=== PATIENT | female | born 1990 | race Caucasian/White ===

== ENCOUNTER 2018-10-18 11:46 | Emergency (ER) | payer OTHER ==
[2018-10-18 12:00] VITALS: BP 108/65
[2018-10-18] MEDS ORDERED: Sodium Chloride 0.9% 1,000 ML IV STA (12:32)
[2018-10-18] MEDS ORDERED: Sodium Chloride 0.9% 10 ML Syringe FLUSH PRN (12:32)
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
[2018-10-18] MEDS ORDERED: HYDROmorphone 1 MG/ML Syringe IVPUSH ONE (13:36)
[2018-10-18] MEDS ORDERED: HYDROmorphone 1 MG/ML Syringe ONE (13:38)
--- NOTE | 2018-10-18 14:38 | CR ---
Abdominal series: Supine and upright views of the abdomen were obtained as well as frontal view of the chest. Waggoner nodular density is noted within the right upper chest. Uncertain as to etiology. Lungs otherwise are clear. Surgical clips are seen from prior cholecystectomy. Bony deformity is seen around the pubic symphysis compatible with old healed fractures. Bowel gas pattern appears normal. No free air is seen. Impression: 1. Waggoner nodular density within the right upper chest. Etiology not certain. Noncontrast chest CT could be considered to further evaluate. 2. Other incidental findings. Nothing acute is otherwise seen. Diagnostic code #9
[2018-10-18] MEDS ORDERED: Sodium Chloride 0.9% 10 ML Syringe FLUSH ONE (15:38)
[2018-10-18] MEDS ORDERED: Diatrizoate Meglumine/Diatrizoate Sodium 37% 120 ML Bottle PO ONE (15:38)
[2018-10-18] MEDS ORDERED: Iopamidol 755 Mg/ML 200 ML Bottle IV ONE (15:38)
--- NOTE | 2018-10-18 16:17 | CT ---
CT chest Technique: Multiple axial sections through the chest were obtained. Intravenous contrast was utilized. Instructed coronal and sagittal images were reviewed. Comparison: Prior chest x-ray performed earlier on the same day (1:51 PM). Findings: Partial fusion in 2 locations is seen between the fourth and fifth ribs possibly due to previous trauma and healed rib fractures or is a congenital anomaly. This is to be the etiology for the patient's nodule seen on plain film study. No acute rib fracture is appreciated. Lungs are clear with no acute parenchymal change. No pleural effusions or pneumothorax is seen. Incidental bilateral breast prosthesis are noted. Mediastinum and hilar region show no adenopathy or mass. Aorta shows no aneurysm. No pericardial thickening is seen. Impression: 1. Deformity between the fourth and fifth right ribs either due to old healed rib fractures or congenital anomaly. As mentioned above, this is felt to be the etiology for the patient's nodule seen on recent chest x-ray. 2. Nothing acute is appreciated on CT study of the chest. Diagnostic code #2 CT abdomen and pelvis Technique: Multiple axial sections were obtained from above the dome of the diaphragm inferiorly through the pubic symphysis. Intravenous and oral contrast was utilized. Comparison: Prior abdominal x-ray performed earlier on same day (1:51 PM). Findings: Liver shows no focal parenchymal abnormality. Surgical clips are seen from previous cholecystectomy. Spleen appears within normal limits. Adrenal glands show no nodule. Pancreas is within normal limits. Kidneys show symmetric contrast enhancement without hydronephrosis or mass. Aorta shows no aneurysm. No retroperitoneal adenopathy is seen. No mesenteric abnormalities are seen. Appendix not visualized with certainty. No pelvic mass or adenopathy is seen. No bowel dilatation is seen. No bowel wall thickening is identified. No free fluid or inflammatory change is seen. Deformity around the pubic symphysis is seen compatible with old healed fractures. Nothing acute seen on bone window settings. Impression: 1. Incidental findings. Nothing acute is appreciated on CT study of the abdomen and pelvis. Diagnostic code #2
== END 2018-10-18 17:05 | disposition home or self-care (01) ==
LOC: JD.ED 11:46
DX: N39.0 Urinary tract infection, site not specified (principal); Z88.0 Allergy status to penicillin; Z88.8 Allergy status to other drugs, medicaments and biological substances; Z86.73 Personal history of transient ischemic attack (TIA), and cerebral infarction without residual deficits
CPT/HCPCS: 36415; 71260; 74022; 74177; 80053; 81001; 83690; 84484; 84703; 85025; 93005; 96361; 96374; 99284; J1170; J7040; Q9963; Q9967

== ENCOUNTER 2021-01-12 08:29 | Day surgery (SDC) | payer BC, OTHER ==
[~2021-01-12 08:29] MED LIST: Lactated Ringers 1,000 ML IV SCH; Lidocaine 1%/Sod Bicarbonate in NS 8.4% 1 ML Syringe IDERM PRN; Sodium Chloride 0.9% 10 ML Syringe FLUSH PRN
[2021-01-12] MEDS ORDERED: Scopolamine 1.5 MG Transdermal Patch TRDERM PRN (09:01)
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
[2021-01-12] MEDS ORDERED: ceFAZolin 1 GM Vial ONE (10:00)
[2021-01-12] MEDS ORDERED: Ondansetron 4 MG/2 ML SDV ONE (10:00)
[2021-01-12] MEDS ORDERED: Lactated Ringers 1,000 ML ONE (10:00)
[2021-01-12] MEDS ORDERED: Lidocaine 1% 4 ML ONE (10:01)
[2021-01-12] MEDS ORDERED: Ketorolac 15 MG/ML SDV ONE (10:01)
[2021-01-12] MEDS ORDERED: Midazolam 1 MG/ML 2 ML SDV ONE (10:01)
[2021-01-12] MEDS ORDERED: fentaNYL 100 MCG/2 ML SDV ONE ×2 (10:01→11:52)
[2021-01-12] MEDS ORDERED: Propofol 200 MG/20 ML SDV ONE ×2 (10:01→10:02)
[2021-01-12] MEDS ORDERED: Dexamethasone 4 MG/ML 5 ML MDV ONE (10:01)
[2021-01-12] MEDS ORDERED: Ondansetron 4 MG/2 ML SDV IVPUSH PRN ×2 (11:33→11:46)
[2021-01-12] MEDS ORDERED: Ketorolac 30 MG/ML SDV IVPUSH SCH (11:45)
--- NOTE | 2021-01-12 11:45 | PCM.OPNOTE ---
- General Post-Op/Procedure Note Date of Surgery/Procedure: 01/12/21 Operative Procedure(s): Hysteroscopy, D&C, NovaSure endometrial ablation Anesthesia Technique: General LMA Primary Surgeon: Jayme Wray Anesthesia Provider: Dulce Gongora Pathology: Endometrial curettings Fluid Replacement, Intraop: 1,000 EBL in mLs: 5 Complications: None Condition: Good Free Text/Narrative:: Surgery duration: 12 minutes Procedure: The patient was appropriately informed of the procedure, risk, benef its and consented. The patient is taking the operative placed in a supine position on the operating table. She received 2 g of Ancef preoperatively for infection prophylaxis. Because she had an allergy to penicillin a test dose was given before the full dose. She had no problems or reactions to the Ancef. She had sequential compression stockings in place for DVT prophylaxis. Patient was given general anesthesia and an LMA was placed for ventilation. She is placed in a dorsal lithotomy position and prepped and draped in usual fashion. An exam under anesthesia was performed. Findings as described above. A weighted speculum was placed in the vagina. Cervix is visualized. It was grasped anteriorly with a single-tooth tenaculum. Uterus was then sounded to a depth of 9-1/2 cm. It is from the posterior, mid position. The cervix was dilated to entrance of a 5 mm 12 rigid hysteroscope. This was placed without problem and normal saline was used as a distending medium. The endometrial cavi ty was visualized. Findings as described above. Only wispy endometrium was noted. No abnormalities apparent. Decision was made to proceed with curettage to remove tissue and to obtain a sampling of endometrium. This was done with a small size sharp curette. Minimal amount tissue was obtained. Endometrial ablation was then performed. The cervix was dilated to allow placement of the NovaSure endometrial apparatus. Uterus had sounded to 9.5 cm and the cervix appeared to be 3 cm in length. This for a uterine endometrial cavity length of 6.5 cm. The NovaSure device was set to 6-1/2 cm and the width of the cavity was found to be 3.5 cm. Settings were placed into the NovaSure generator. The uterine cavity integrity check was then performed and was successful. The endometrial cavity was then ablated. Energy was 125. The ablation took approximately 75 seconds. The array was collapsed and the apparatus was removed. Hysteroscope was then placed back into the endometrial cavity. The findings were consistent with a cauterized endometrial cavity. At this point the scope was removed. The vagina was cleared of old blood, the cervix was released and the weighted speculum was removed. Patient was returned to supine position and awakened from general anesthesia. She tolerated the procedure well and operating room in good condition.
[2021-01-12] MEDS ORDERED: HYDROmorphone 0.5 MG/0.5 ML Syringe IVPUSH PRN (11:46)
--- NOTE | 2021-01-12 11:46 | PCM.POSTAN ---
POST ANESTHESIA ASSESSMENT - MENTAL STATUS Mental Status: Alert, Oriented - VITAL SIGNS Vital Signs: Last Vital Signs Temp 36.4 C 01/12/21 08:22 Pulse 88 01/12/21 08:22 Resp 16 01/12/21 08:22 BP 121/88 01/12/21 08:22 Pulse Ox 100 01/12/21 08:22 1140 118/78 83 18 99% 97.6F - RESPIRATORY Respiratory Status: Respiratory Rate WNL, Airway Patent, O2 Saturation Stable, Supplemental Oxygen - CARDIOVASCULAR CV Status: Pulse Rate WNL, Blood Pressure Stable - GASTROINTESTINAL GI Status: No Symptoms - PAIN Pain Score: 0 - POST OP HYDRATION Hydration Status: Adequate & Stable
[2021-01-12] MEDS: fentaNYL 100 MCG/2 ML SDV IVPUSH PRN ×2 (11:53→12:01)
[2021-01-12 13:24] VITALS: BP 113/81; PULSE 58
--- NOTE | 2021-01-12 15:13 | PCM48HPAN ---
Post Anesthesia Note - EVALUATION WITHIN 48HRS OF ANESTHETIC Vital Signs in Normal Range: Yes Patient Participated in Evaluation: Yes Respiratory Function Stable: Yes Airway Patent: Yes Cardiovascular Function Stable: Yes Hydration Status Stable: Yes Pain Control Satisfactory: Yes Nausea and Vomiting Control Satisfactory: Yes Mental Status Recovered: Yes Vital Signs: Last Vital Signs Temp 36.5 C 01/12/21 11:40 Pulse 58 L 01/12/21 13:01 Resp 14 01/12/21 13:01 BP 113/81 01/12/21 13:01 Pulse Ox 100 01/12/21 13:01
[2021-01-12] MEDS ORDERED: Ibuprofen 600 MG Tab PO PRN (16:00)
== END 2021-01-12 13:18 | disposition home or self-care (01) ==
LOC: JD.SDS 08:29
PROVIDERS: ATTEND Obstetrics & Gynecology
DX: N85.8 Other specified noninflammatory disorders of uterus (principal); G43.909 Migraine, unspecified, not intractable, without status migrainosus; M06.9 Rheumatoid arthritis, unspecified; J30.9 Allergic rhinitis, unspecified; Z88.0 Allergy status to penicillin; Z88.8 Allergy status to other drugs, medicaments and biological substances; Z90.49 Acquired absence of other specified parts of digestive tract; Z98.890 Other specified postprocedural states
CPT/HCPCS: 58563; A9270; J0690; J1100; J1885; J2250; J2405; J2704; J3010; J7120; 00952

== ENCOUNTER 2024-10-10 15:58 | Emergency (ER) | payer SELFPAY ==
[2024-10-10 16:40] LABS: BASOPHILS PERCENT AUTO 0.6 % (0.0-1.0); EOSINOPHILS ABSOLUTE AUTO 0.1 K/mm3 (0.0-0.4); EOSINOPHILS PERCENT AUTO 1.6 % (0.0-6.0); HEMATOCRIT 37.7 % (37.0-47.0); HEMOGLOBIN 12.7 gm/dl (12.0-16.0); IMMATURE GRAN ABSOLUTE AUTO 0.02 K/mm3 (0.00-0.05); IMMATURE GRAN PERCENT AUTO 0.3 % (0.0-0.4); LYMPHOCYTES ABSOLUTE AUTO 2.1 K/mm3 (1.0-4.8); LYMPHOCYTES PERCENT AUTO 31.3 % (24.0-44.0); MEAN CORPUSCULAR HEMOGLOBIN 30.2 pg (28.0-32.0); MEAN CORPUSCULAR HGB CONC 33.7 g/dl (32.0-36.0); MEAN CORPUSCULAR VOLUME 89.8 fl (83.0-99.0); MEAN PLATELET VOLUME 9.7 fl (9.4-12.3); MONOCYTES ABSOLUTE AUTO 0.9 K/mm3 (0.0-0.8); NEUTROPHILS ABSOLUTE AUTO 3.5 K/mm3 (1.8-7.7); NEUTROPHILS PERCENT AUTO 53.2 % (41.0-71.0); PLATELET COUNT,PLT 245 K/mm3 (150-400); WHITE BLOOD CELL COUNT,WBC 6.67 K/mm3 (3.9-11.3)
[2024-10-10] MEDS: Lactated Ringers 1,000 ML IV ONE (16:52)
[2024-10-10 16:55] LABS: A/G RATIO 1.3 (1-2); BILIRUBIN TOTAL 0.4 mg/dL (0.2-1.0); BUN/CREATININE RATIO 18.6 (14-18); CREATININE 0.7 mg/dL (0.55-1.02); EST CRCL DRUG DOSING (CG) 79.52 mL/min; MAGNESIUM 2.1 mg/dL (1.8-2.4); PROTEIN TOTAL,TP 7.1 g/dl (6.4-8.2)
[2024-10-10] MEDS: Magnesium Oxide 400 MG Tab PO ONE (18:18)
[2024-10-10] MEDS: Potassium Chloride 20 MEQ Tab.ER PO ONE (18:18)
[2024-10-10 18:28] VITALS: BP 124/95; PULSE 86
== END 2024-10-10 18:26 | disposition home or self-care (01) ==
LOC: JD.ED 15:58
DX: R19.7 Diarrhea, unspecified (principal); Z88.0 Allergy status to penicillin; Z88.8 Allergy status to other drugs, medicaments and biological substances; Z79.899 Other long term (current) drug therapy; Z90.49 Acquired absence of other specified parts of digestive tract
CPT/HCPCS: 36415; 80053; 83735; 85025; 96360; 99284; A9270; J7120; 99283